=== PATIENT | male | born 1985 | race Two or more races ===

== ENCOUNTER 2023-06-09 06:05 | Day surgery (SDC) | payer OTHER, SELFPAY ==
[2023-06-09] VITALS (7 sets, daily range): BP systolic 109–125; BP diastolic 78–95; BMI 24.2
[2023-06-09] MEDS: NORMOSOL-R 1000 IV (06:44)
--- NOTE | 2023-06-09 07:33 | PTCARENOTE ---
Dr. Castano came to the bedside to fill out H&P and update OR consent. Will monitor patient.
== END 2023-06-09 09:56 | disposition home or self-care (01) ==
LOC: SDS 06:05
PROVIDERS: ATTENDING PHYSICIAN Specialist
DX: Z30.2 Encounter for sterilization (principal)
CPT/HCPCS: 55250; 88302

== ENCOUNTER → 2023-08-01 08:46 | Outpatient (REF) | payer OTHER, SELFPAY | LOC: RAD 08:46 | PROVIDERS: ATTENDING PHYSICIAN Nurse Practitioner Adult Health | DX: M25.561 Pain in right knee (principal) | CPT/HCPCS: 73564 ==

== ENCOUNTER 2024-05-10 09:13 | Outpatient (RCR) | payer OTHER, SELFPAY | END 2024-05-10 23:59 | disposition home or self-care (01) | LOC: RPT 09:13 | PROVIDERS: ATTENDING PHYSICIAN Nurse Practitioner Adult Health | DX: M54.16 Radiculopathy, lumbar region (principal); Z73.6 Limitation of activities due to disability | CPT/HCPCS: 97110; 97112; 97140; 97162 ==

== ENCOUNTER 2024-10-12 11:18 | Emergency (ER) | payer OTHER, SELFPAY ==
[2024-10-12 11:27] VITALS: BP 125/68
--- NOTE | 2024-10-12 13:50 | ED.GENMED ---
History of Present Illness
General
Chief Complaint: Musculo-Skeletal Complaint
Time Seen by Provider: 10/12/24 13:01
History of Present Illness
History of Present Illness:
39-year-old male without significant past medical history presenting for bilateral leg pain, left greater than right. Patient reports that he left for a cruise about 6 days ago. At the airport he struck his left boone on a suitcase which caused
some mild discomfort. The following day was starting to have pain in his boone which developed into his calf and his ankle. Noted some bilateral lower ankle swelling. He went to the medical on the cruise ship, had blood work that was unremarkable.
He was ultimately concern for a blood clot, which prompted him to come to the hospital. Denies numbness, reports some tingling sensation. Does report that he was drinking a lot of alcohol and was in the sun a lot during the cruise. Denies any
history of blood clots in his family or any chest pain or difficulty breathing. Denies additional acute medical complaints
Phy Exam
Physical Exam
Physical Exam:
General: Well-appearing, no clinical signs of dehydration, nontoxic and in no acute distress
HEENT: protecting airway
Neck: appears supple
CV: Normal heart rate
Resp: No accessory muscle use, no increased work of breathing
Abd: No distention
Extremities: No deformities, no significant swelling. Mild tenderness to the left anterior boone with mild abrasion. No erythema or warmth. Distal sensation and pulses intact. No tenderness to the calf. No asymmetrical swelling
Neuro: alert, no focal neurologic deficit
: deferred
Rectal: deferred
Psych: Normal affect
Skin: Intact
Course
Orders/Labs/Results
Orders:
Orders
10/12/24 11:32
US Periph Venous LOWER Ext Facundo Urgent
Reason For Exam: swelling
Vital Signs
Initial and Last Documented VS:
Initial Vital Signs
Temp Pulse Resp BP Pulse Ox
98.3 F 89 16 125/68 98
10/12/24 11:27 10/12/24 11:27 10/12/24 11:27 10/12/24 11:27 10/12/24 11:27
Last Documented Vital Signs
Temp Pulse Resp BP Pulse Ox
98.3 F 89 16 125/68 98
10/12/24 11:27 10/12/24 11:27 10/12/24 11:27 10/12/24 11:27 10/12/24 11:27
MDM/Problems Addressed
MDM/Problems Addressed:
39-year-old male presenting for left lower extremity pain. Vitals are normal.
On exam, patient is well-appearing, no acute distress. Examination of the lower extremities, reassuring. No significant swelling. No infectious findings, no erythema, no warmth. No asymmetric swelling with lower suspicion for DVT. Pain is
primarily focused to the left anterior boone, mild abrasion, which is where patient notes that he was injured with a suitcase. No obvious deformity without concern for fracture or malalignment. Distal sensation and pulses intact, no neurovascular
compromise. Ultimately suspect musculoskeletal quality to pain. Mild lower extremity swelling at the ankle region. Suspect from dependent edema, notes that he was drinking a lot of alcohol, was in the sun, mild dehydration. Ultrasound obtained
prior to my assessment, negative for DVT. Feel stable for discharge with outpatient supportive therapy. Return precautions discussed and patient verbalized understanding
*Pulse Oximetry
SaO2: 98
Oxygen Mode of Delivery: Room air
Patient hypoxic: no
*Critical Care Note
Total Time (30-74mins, 75-104mins- exclusive of procedures): Not Applicable
ED Attending Note
-
Portions of this chart may have been created with voice recognition software.� Occasional wrong word or��sound alike� substitutions may have occurred due to the inherent limitations of voice recognition software.
Discharge Plan
Departure
Prescriptions:
No Action
fluoxetine [Prozac] 40 mg Capsule
40 mg PO DAILY
lorazepam [Ativan] 0.5 mg Tablet
0.5 mg PO HS PRN (Reason: Insomina)
bupropion HCl [Wellbutrin XL] 300 mg Tablet Extended Release 24 Hr
300 mg PO DAILY
Mucinex
1 tab PO DAILY
Interventions
Interventions:
*Risk Screen - Suicide Last Done: 10/12/24 11:27
*Neglect/Abuse Screening Last Done: 10/12/24 11:27
Discharge Date and Time
Print Language: BENINESE
== END 2024-10-12 15:19 | disposition home or self-care (01) ==
LOC: EMR 11:18
PROVIDERS: EMERGENCY PHYSICIAN Student in an Organized Health Care Education/Training Program; FAMILY PHYSICIAN Nurse Practitioner Adult Health
DX: M79.605 Pain in left leg (principal); R22.43 Localized swelling, mass and lump, lower limb, bilateral
CPT/HCPCS: 99284; 93970

== ENCOUNTER 2024-10-30 11:17 | Day surgery (SDC) | payer OTHER, SELFPAY ==
[2024-10-30] VITALS (10 sets, daily range): BP systolic 116–146; BP diastolic 69–76; BMI 23.7
[2024-10-30] MEDS: NORMOSOL-R/PLASMALYTE-A 1000 IV (11:35)
[2024-10-30] MEDS: TYLENOL 1000 MG PO (11:47)
[2024-10-30] MEDS: VANCOCIN 200 IV (11:52)
--- NOTE | 2024-10-30 14:27 | W.IMMPOSTOP ---
Surgical Immed Post Op Note
-
Primary Surgeon: Zheng Reese MD
Assisting Surgeon:
Pre-op Diagnosis: left distal clavicle osteolysis
Post-op Diagnosis: left distal clavicle osteolysis
Procedure Performed: arthroscopic left shoulder debridement and distal clavicle excision
Anesthesia Type: general, regional
Specimen / Cultures: none
Estimated Blood Loss: 5mL
Complications: none apparent
Operative Findings: intact biceps tendon, minimal superior labral fraying, extensive bursitis
Operative dictation #: [id number]
== END 2024-10-30 16:15 | disposition home or self-care (01) ==
LOC: SDS 11:17
PROVIDERS: ATTENDING PHYSICIAN Student in an Organized Health Care Education/Training Program; FAMILY PHYSICIAN Nurse Practitioner Adult Health
DX: M89.512 Osteolysis, left shoulder (principal)
CPT/HCPCS: 29824

== ENCOUNTER 2024-11-22 08:27 | Outpatient (RCR) | payer OTHER, SELFPAY | END 2024-11-22 23:59 | disposition home or self-care (01) | LOC: RPT 08:27 | PROVIDERS: ATTENDING PHYSICIAN Student in an Organized Health Care Education/Training Program; FAMILY PHYSICIAN Internal Medicine | DX: Z47.89 Encounter for other orthopedic aftercare (principal); M89.512 Osteolysis, left shoulder; Z73.6 Limitation of activities due to disability; M62.81 Muscle weakness (generalized) | CPT/HCPCS: 97010; 97110; 97162 ==

== ENCOUNTER 2024-12-10 09:09 | Outpatient (RCR) | payer OTHER, SELFPAY | END 2024-12-10 23:59 | disposition home or self-care (01) | LOC: RPT 09:09 | PROVIDERS: ATTENDING PHYSICIAN Student in an Organized Health Care Education/Training Program; FAMILY PHYSICIAN Internal Medicine | DX: M89.512 Osteolysis, left shoulder (principal); M62.81 Muscle weakness (generalized); Z47.89 Encounter for other orthopedic aftercare; Z73.6 Limitation of activities due to disability; M25.512 Pain in left shoulder | CPT/HCPCS: 97110 ==